=== PATIENT | male | born 1980 | race Caucasian/White ===

== ENCOUNTER → 2021-02-05 11:52 | Outpatient (BNVA) | payer OTHER, SELFPAY | PROVIDERS: Visit Provider Nurse Practitioner Family | DX: Z20.822 Contact with and (suspected) exposure to COVID-19 (principal); J06.9 Acute upper respiratory infection, unspecified | CPT/HCPCS: 87635 ==

== ENCOUNTER 2021-12-02 14:48 | Inpatient (IN) | payer SELFPAY ==
[2021-12-02 14:53] VITALS: BP 147/95; PULSE 95; RESP 16; TEMP 36.5; O2SAT 98; BMI 25.1
--- NOTE | 2021-12-02 15:00 | W.ED.PSYCHS ---
HPI - Psych General: Chief Complaint: Psychiatric Symptoms Stated Complaint: Anxiety; Depression Time Seen by Provider: 12/02/21 15:00 History of Present Illness: 41-year-old presents due to anxiety and depression. States that she recently became and homeless. Denies drug use. Denies suicidal homicidal ideation. Denies any focal pain. Review of Systems Narrative: - CONSTITUTIONAL: Denies weight loss, fever and chills. - HEENT: Denies changes in vision and hearing. - RESPIRATORY: Denies SOB and cough. - CV: Denies palpitations and CP. - GI: Denies abdominal pain, nausea, vomiting and diarrhea. - : Denies dysuria and urinary frequency. - MSK: Denies myalgia and joint pain. - SKIN: Denies rash and pruritus. - NEUROLOGICAL: Denies headache, weakness, numbness and syncope. - PSYCHIATRIC: Endorses anxiety, denies suicidal ideation [facility] ED PFSH: Social History Smoking and tobacco status: never smoked Physical Exam Narrative: EXAM NARRATIVE: - GENERAL: Alert and oriented x 3. No acute distress. Well-nourished. - EYES: EOMI. Anicteric. - HENT: Atraumatic, no C-spine tenderness. Moist mucous membranes. No scleral icterus. No cervical lymphadenopathy. - LUNGS: Clear to auscultation bilaterally. No accessory muscle use. Equal lung sounds bilaterally. No respiratory distress. - CARDIOVASCULAR: Regular rate and rhythm. No murmur. No JVD. - ABDOMEN: Soft, non-tender and non-distended. Negative CVA tenderness bilaterally, no rebound or guarding, negative Johnston sign. No palpable masses. - EXTREMITIES: No edema. Non-tender. - SKIN: No rashes or lesions. Warm. - NEUROLOGIC: No meningismus or focal neurological deficits. CN II-XII grossly intact. - PSYCHIATRIC: Cooperative. Appropriate mood and affect. Course Vital Signs: Vital signs: Vital Signs Temperature 97.7 F 12/02/21 14:53 Pulse Rate 95 12/02/21 14:53 Respiratory Rate 16 12/02/21 14:53 Blood Pressure 147/95 12/02/21 14:53 Pulse Oximetry 98 12/02/21 14:53 [facility] - Psych Medical Decision Making 41-year-old presents with extreme anxiety and inability to care for self. Denies suicidal homicidal ideation. Physical exam unremarkable. Discussed with psychiatry and they will admit. Further evaluation management per psychiatry. Patient admitted in stable condition and is voluntary. Discharge Plan Discharge Condition: Stable Prescriptions: No Action No Known Home Medications 0RF Coding Level of Care Code ED Classer for Isabela Leung
[2021-12-02 15:39] LABS: Add Urine Culture? No; Bacteria Urine TRACE /hpf; Basophils % 0.5 %; Bilirubin Urine Neg (Negative); Blood Urine Neg (Negative); Eosinophils # 0.1 10^3/uL (0.0-0.8); Eosinophils % 1.2 %; Glucose Urine UA Norm (Normal); Hematocrit 41.3 % (42.0-52.0); Hemoglobin 14.3 g/dL (11.7-16.6); Ketones Urine 1+ (Negative); Leukocyte Esterase Urine Negative (Negative); Lymphocytes # 1.3 10^3/uL (0.8-4.8); Lymphocytes % 23.2 %; Mean Corpuscular HGB Conc 34.6 g/dL (30.0-36.0); Mean Corpuscular Hemoglobin 30.1 pg (28.0-34.0); Mean Corpuscular Volume 86.9 fl (80-94); Mean Platelet Volume 9.6 fL (7.4-10.4); Monocytes # 0.6 10^3/uL (0.2-0.9); Monocytes % 9.9 %; Mucus Urine 3+ /hpf; Neutrophils # 3.68 10^3/uL (1.8-7.7); Neutrophils % 64.8 %; Nitrate Urine Negative (Negative); Nucleated Red Blood Cells % 0 %; Platelet Count 213 10^3/cmm (130-400); Protein Urine Neg (Negative); Red Blood Count 4.75 10^6/uL (4.1-5.3); Red Cell Distribution Width 12.6 % (12.1-15.1); Urine Appearance Clear (CLEAR); Urine Color Yellow (Yellow); Urobilinogen Urine Norm (Negative); WBC Urine RARE /hpf (0-5); White Blood Count 5.7 10^3/uL (4.0-10.0); pH Urine 5 (5-7)
[2021-12-02 15:52] LABS: SARS Covid-2 Antigen Negative (Negative)
[2021-12-02 16:06] LABS: Alanine Aminotransferase 44 U/L (0-41); Albumin Level 4.9 g/dL (3.5-5.2); Alkaline Phosphatase 88 IU/L (40-130); Anion Gap 15.2 (5-19); Aspartate Amino Transferase 21 U/L (0-40); Blood Urea Nitrogen 18 mg/dL (6-20); Calcium 9.1 mg/dL (8.5-10.5); Carbon Dioxide 24 mmol/L (22-29); Chloride 105 mmol/L (98-107); Globulin 2.1 g/dL (1.3-4.6); Glomerular Filtration Rate 93.9 mL/min (90-130); Glucose 112 mg/dL (65-115); Osmolality Calculated 293 mOsm/kg (285-295); Potassium 4.2 mmol/L (3.5-5.1); Sodium 140 mmol/L (136-145); Thyroid Stimulating Hormone 0.94 uIU/mL (0.27-4.20); Total Bilirubin 0.4 mg/dL (0.15-1.2)
[2021-12-02 16:11] VITALS: BP 128/78; PULSE 90; RESP 16; TEMP 36.7; O2SAT 96
[2021-12-02 16:26] LABS: Amphetamines Screen Urine Negative (Negative); Barbiturates Screen Urine Negative (Negative); Benzodiazepines Screen Urine Negative (Negative); Cocaine Screen Urine Negative (Negative); Opiate Screen Urine Negative (Negative); PCP Screen Urine Negative (Negative); THC Screen Urine Negative (Negative)
[2021-12-02] MEDS: OLANZapine 5 mg ODT PO (16:26)
[2021-12-02 16:27] LABS: Acetaminophen < 5.0 ug/mL (10-30); Alcohol Level < 10 mg/dL (0-10); Salicylate < 0.3 mg/dL (3-10)
[2021-12-02] MEDS: haloperidol 5 mg Tablet PO (18:09)
[2021-12-02 20:06] VITALS: BP 129/75; PULSE 99; RESP 18; TEMP 36.7; O2SAT 97
[2021-12-03 06:00] VITALS: BP 116/76; PULSE 94; RESP 16; TEMP 36.8; O2SAT 97
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
[2021-12-03 14:00] VITALS: BP 118/72; PULSE 78; RESP 20; TEMP 36.6; O2SAT 97
[2021-12-03] MEDS: hyDROXYzine 25 mg Capsule 50 MG PO ×2 (16:38→20:04)
[2021-12-03 20:28] VITALS: BP 132/84; PULSE 74; RESP 18; TEMP 36.7; O2SAT 98
[2021-12-04 06:00] VITALS: BP 112/73; PULSE 77; RESP 16; TEMP 36.6; O2SAT 97
[2021-12-04] MEDS: fluoxetine 20 mg Capsule PO (08:55)
[2021-12-04 14:00] VITALS: BP 132/84; PULSE 83; RESP 17; TEMP 36.9; O2SAT 97
--- NOTE | 2021-12-04 16:48 | P.NPUPN_ITS ---
Subjective NPU Subjective: Patient presents today reporting that he feels better with initiation of medication. He reports that he is eating and sleeping okay. He reports that he is currently staying at [facility] and trying to get things back on track. He denies any side effects to the medication. He reports working with social work team to make sure he has appropriate referrals. Mental Status Exam MSE Comments: This is an overweight white male in hospital scrubs with adequate grooming and limited eye contact. No abnormal movements except for psychomotor retardation. Cooperative with exam in mild distress. Mood described as a little better, affect is congruent. Thought process, organized. Thought content: patient denies suicidal or homicidal ideation, reports paranoia but no other delusions noted, and denies any auditory or visual hallucinations. Attention and concentration are intact and memory is reliable but none were formally tested. He is alert and oriented three times. Insight and judgment are fair. Impulse control is fair. Vitals/I&O/Wt Last Vital Signs Temp 98.5 F 12/04/21 14:00 Pulse 83 12/04/21 14:00 Resp 17 12/04/21 14:00 BP 132/84 12/04/21 14:00 Pulse Ox 97 12/04/21 14:00 Data NPU : 12/02/21 15:20 12/02/21 15:20 A&P Assessment and plan (1) Alcohol use: Status: Acute (2) Partner relational problem: Status: Acute (3) Major depressive episode: Status: Acute (4) Marital problem involving divorce: Status: Acute Plan This is a 41 year old male with a history of trauma and genetic loading for mental health and addiction issues who presents with worsening anxiety and depression symptoms that have significantly impacted his life, currently going through a divorce and open to starting medications. 1.? Started Prozac 20 mg po qam. 2.? Encourage individual, group and milieu therapy 3.? Continue q-15 minute check for safety 4.? Recommend sober living treatment at the highest level of care to which the patient is willing to commit. Involuntary Hold Information 96 Hour Hold: 96 Hour Involuntary Admission: No Attestations NPU Medical Necessity Statement*: Inpatient hospitalization is medically necessary and the clinically appropriate intervention at this time. We will monitor medications and make changes as indicated. Likely length of stay is 2-4 days. Coding Level of Care Code Acute Steak Tenderizer Machine for Kvgng Fwd Diagnoses Alcohol use Z72.89 Partner relational problem Z63.0 Major depressive episode F32.9 Marital problem involving divorce Z63.5
[2021-12-04] MEDS: hyDROXYzine 25 mg Capsule 50 MG PO (21:09)
[2021-12-04 21:12] VITALS: BP 135/88; PULSE 87; RESP 16; TEMP 36.2; O2SAT 95
[2021-12-05 06:00] VITALS: BP 124/82; PULSE 90; RESP 18; TEMP 36.5; O2SAT 97
[2021-12-05] MEDS: fluoxetine 20 mg Capsule PO (08:08)
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
[2021-12-05 13:26] VITALS: BP 124/82; PULSE 90; RESP 18; TEMP 36.5; O2SAT 97
== END 2021-12-05 15:54 | disposition home or self-care (01) | DRG 881 ==
LOC: ER 15:25 → NP 15:26
PROVIDERS: Admitting Provider Psychiatry & Neurology Psychiatry; Emergency Provider Emergency Medicine; Visit Provider Psychiatry & Neurology Psychiatry
DX: F32.9 Major depressive disorder, single episode, unspecified (principal); F41.9 Anxiety disorder, unspecified; Z59.00 Homelessness unspecified; Z88.0 Allergy status to penicillin; Z81.8 Family history of other mental and behavioral disorders; Z63.0 Problems in relationship with spouse or partner; F10.10 Alcohol abuse, uncomplicated
CPT/HCPCS: 80053; 80306; 80307; 81001; 84443; 85025; 87426; 97150; 97165; 99285

== ENCOUNTER 2022-05-02 15:10 | Emergency (ER) | payer MEDICAID, SELFPAY ==
[2022-05-02 16:13] VITALS: BP 157/105; PULSE 82; RESP 18; TEMP 36.7; O2SAT 97; BMI 26.4
--- NOTE | 2022-05-02 18:06 | CTR_ITS ---
PROCEDURE INFORMATION: Exam: CT Head Without Contrast Exam date and time: 05/02/2022 7:09 PM Age: 42 years old Clinical indication: Alteration of consciousness; Transient alteration of awareness; Additional info: Anxiety and paranoia TECHNIQUE: Imaging protocol: Computed tomography of the head without contrast. Radiation optimization: All CT scans at this facility use at least one of these dose optimization techniques: automated exposure control; mA and/or kV adjustment per patient size (includes targeted exams where dose is matched to clinical indication); or iterative reconstruction. COMPARISON: No relevant prior studies available. RADIATION DOSE METRICS: Total DLP (mGy-cm): 1013.23 FINDINGS: Brain: Normal. No hemorrhage. Unremarkable white matter. No mass effect. Cerebral ventricles: No ventriculomegaly. Paranasal sinuses: Visualized sinuses are unremarkable. No fluid levels. Mastoid air cells: Visualized mastoid air cells are well aerated. Bones/joints: Unremarkable. No acute fracture. Soft tissues: Unremarkable. CT/CT head wo con* [id number] IMPRESSION: No acute intracranial abnormality.
--- NOTE | 2022-05-02 18:35 | ED_ITS ---
HPI - General Adult General: Chief complaint: General Medical Stated complaint: medication issue Time Seen by Provider: 05/02/22 16:54 History of Present Illness: Patient is a 42-year-old male that reports he is in today for anxiety. He reports that he has been having major life changes and issues with anxiety for approximately 2 years. He reports that he is currently on Prozac 40 mg daily and also trazodone. He reports that those are helping somewhat with his depression however his anxiety is crippling to him he is unable to work. He reports that he starts crying a lot and then he has thoughts that are unrealistic. He reports it is like he is in a movie and he is feeling very paranoid. He reports episode lasting greater than 2 hours this morning. He states that he went to [facility] and they advised him to come here because they could not get him in until next Friday. He is asking for help until Friday. He reports that he has never had any evaluation of his head and this is a very new feeling of paranoia for him. He does have family history of mental illness but he is unsure if that is schizophrenia. He denies hearing or seeing things that other people do not however he states that his issue this morning was like he was in a dream and an unrealistic dream. He denies any thoughts of suicide or homicide at this time. He denies any drug abuse. Associated symptoms: Deny chest pain, dyspnea or palpitations Review of Systems Const: Denies: fever(s) or chills Card: Denies: chest pain or palpitations Resp: Denies: dyspnea Psych: Reports: anxiety, depression, panic attacks and paranoia [facility] ED PFSH: Medical History Psychiatric care Social History Smoking and tobacco status: never smoked Physical Exam Const: COMMON NORMALS: no acute distress, patient oriented x3 and alert Resp: COMMON NORMALS: normal respiratory effort, No use of accessory muscles and clear to auscultation bilaterally AUSCULTATION: clear to auscultation bilaterally Cardio: COMMON NORMALS: regular rate, regular rhythm, S1 normal heart sound present, S2 normal heart sound present and No murmurs present (Cardio) RATE: regular rate RHYTHM: regular rhythm HEART SOUNDS: S1 normal heart sound present and S2 normal heart sound present Neuro: COMMON NORMALS: patient oriented x3, CN's II-XII intact bilaterally, moves all extremities and no focal motor deficits SENSORIUM/ORIENTATION: Yes alert Psych: COMMON NORMALS: cooperative, normal affect, speech normal, denies hallucinations, denies homicidal ideation and denies suicidal ideation SPEECH: Yes normal speech OTHER: Patient reports paranoid thinking. He does talk in a whisper most of the exam. Course Vital Signs: Vital signs: Vital Signs Temperature 98.0 F 05/02/22 18:52 Pulse Rate 82 05/02/22 18:52 Respiratory Rate 18 05/02/22 18:52 Blood Pressure 148/98 05/02/22 18:52 Pulse Oximetry 98 05/02/22 18:52 Oxygen Delivery Me thod 05/02/22 18:52 MDM - General Adult Medical Decision Making Patient reports that the paranoia is relatively new. He does have a family history of mental illness but he is unsure if it was schizophrenia or not. He is feeling somewhat schizophrenic per his report because he is having [place] day thinking and paranoia. He denies auditory or visual hallucinations. Head CT done today. Head CT shows no acute intracranial abnormality. Labs are unremarkable except positive for benzodiazepines on UDS. Patient denies any benzodiazepine use. Start patient on BuSpar 5 mg p.o. twice daily 1 week supply provided to get patient through until Friday. Advised patient to keep his follow-up appointment with [facility] on Friday. Return to the ER for any new or worsening symptoms including but not limited to increased paranoia, homicidal ideation, suicidal ideation Lab Data : 05/02/22 18:45 05/02/22 18:[address] 05/02/22 18:06 IMPRESSION: No acute intracranial abnormality. Laboratory Results WBC 6.1 10^3/uL (4.0-10.0) 05/02/22 18:45 RBC 4.93 10^6/uL (4.1-5.3) 05/02/22 18:45 Hgb 14.7 g/dL (11.7-16.6) 05/02/22 18:45 Hct 43.1 % (42.0-52.0) 05/02/22 18:45 MCV 87.4 fl (80-94) 05/02/22 18:45 MCH 29.8 pg (28.0-34.0) 05/02/22 18:45 MCHC 34.1 g/dL (30.0-36.0) 05/02/22 18:45 RDW 13.0 % (12.1-15.1) 05/02/22 18:45 Plt Count 189 10^3/cmm (130-400) 05/02/22 18:45 MPV 9.3 fL (7.4-10.4) 05/02/22 18:45 Neut % (Auto) 55.5 % 05/02/22 18:45 Lymph % (Auto) 30.1 % 05/02/22 18:45 [place] % (Auto) 10.3 % 05/02/22 18:45 Eos % (Auto) 3.1 % 05/02/22 18:45 Baso % (Auto) 0.7 % 05/02/22 18:45 Neut # (Auto) 3.41 10^3/uL (1.8-7.7) 05/02/22 18:45 Lymph # (Auto) 1.9 10^3/uL (0.8-4.8) 05/02/22 18:45 [place] # (Auto) 0.6 10^3/uL (0.2-0.9) 05/02/22 18:45 Eos # (Auto) 0.2 10^3/uL (0.0-0.8) 05/02/22 18:45 Baso # (Auto) 0.0 10^3/uL (0.0-0.1) 05/02/22 18:45 Nucleated RBC % (auto) 0 % 05/02/22 18:45 Nucleated RBCs # 0.0 /100WBC 05/02/22 18:45 Sodium 141 mmol/L (136-145) 05/02/22 18:45 Potassium 4.1 mmol/L (3.5-5.1) 05/02/22 18:45 Chloride 105 mmol/L (98-107) 05/02/22 18:45 Carbon Dioxide 25 mmol/L (22-29) 05/02/22 18:45 Anion Gap 15.1 (5-19) 05/02/22 18:45 BUN 17 mg/dL (6-20) 05/02/22 18:45 Creatinine 0.8 mg/dL (0.7-1.2) 05/02/22 18:45 GFR Calculation 107.1 mL/min (90-130) 05/02/22 18:45 Glucose 93 mg/dL (65-115) 05/02/22 18:45 Calculated Osmolality 293 mOsm/kg (285-295) 05/02/22 18:45 Calcium 9.1 mg/dL (8.5-10.5) 05/02/22 18:45 Total Bilirubin 0.4 mg/dL (0.15-1.2) 05/02/22 18:45 AST 45 U/L (0-40) H 05/02/22 18:45 ALT 52 U/L (0-41) H 05/02/22 18:45 Alkaline Phosphatase 100 U/L (40-130) 05/02/22 18:45 Total Protein 7.3 g/dL (6.6-8.7) 05/02/22 18:45 Albumin 4.4 g/dL (3.5-5.2) 05/02/22 18:45 Globulin 2.9 g/dL (1.3-4.6) 05/02/22 18:45 Urine Opiates Screen Negative ng/mL (Negative) 05/02/22 18:45 Ur Barbiturates Screen Negative ng/mL (Negative) 05/02/22 18:45 Ur Phencyclidine Scrn Negative ng/mL (Negative) 05/02/22 18:45 Ur Amphetamines Screen Negative ng/mL (Negative) 05/02/22 18:45 U Benzodiazepines Scrn Positive ng/mL (Negative) H 05/02/22 18:45 Urine Cocaine Screen Negative ng/mL (Negative) 05/02/22 18:45 U Marijuana (THC) Screen Negative ng/mL (Negative) 05/02/22 18:45 Discharge Plan Discharge Patient Disposition: Home Clinical Impression: Anxiety, Paranoia Condition: Stable Prescriptions: New buspirone 5 mg tablet 5 mg PO BID Qty: 14 0RF No Action trazodone 150 mg tablet 150 mg PO .q hs PRN (Reason: insomnia) Qty: 30 2RF Rx Instructions: Take 1/2 to one tablet at bedtime, if needed for insomnia fluoxetine 40 mg capsule 40 mg PO QAM Qty: 30 2RF Rx Instructions: Take one capsule by mouth every morning; stop 20 mg dose Discharge Orders: Discharge ED (Routine); Ordered 05/02/22 Ordered By: Nano Marin Discharge Diet: Usual diet Discharge Activity: Resume usual activity Patient Instructions: Buspirone (By mouth) Activity Restrictions/Additional Instructions: Start buspirone. Take as directed. Follow-up, as previously scheduled, with [facility] on Friday. Return to the emergency department for any new or worse symptoms including but not limited to worsening paranoia, thoughts of suicide, thoughts of homicide. Coding Level of Care Code ED Production Department Supervisor for Isabela Leung Exam Detailed
[2022-05-02 18:50] LABS: Basophils % 0.7 %; Eosinophils # 0.2 10^3/uL (0.0-0.8); Eosinophils % 3.1 %; Hematocrit 43.1 % (42.0-52.0); Hemoglobin 14.7 g/dL (11.7-16.6); Lymphocytes # 1.9 10^3/uL (0.8-4.8); Lymphocytes % 30.1 %; Mean Corpuscular HGB Conc 34.1 g/dL (30.0-36.0); Mean Corpuscular Hemoglobin 29.8 pg (28.0-34.0); Mean Corpuscular Volume 87.4 fl (80-94); Mean Platelet Volume 9.3 fL (7.4-10.4); Monocytes # 0.6 10^3/uL (0.2-0.9); Monocytes % 10.3 %; Neutrophils # 3.41 10^3/uL (1.8-7.7); Neutrophils % 55.5 %; Nucleated Red Blood Cells % 0 %; Platelet Count 189 10^3/cmm (130-400); Red Blood Count 4.93 10^6/uL (4.1-5.3); White Blood Count 6.1 10^3/uL (4.0-10.0)
[2022-05-02 18:52] VITALS: BP 148/98; PULSE 82; RESP 18; TEMP 36.7; O2SAT 98
[2022-05-02 19:09] LABS: Alanine Aminotransferase 52 U/L (0-41); Albumin Level 4.4 g/dL (3.5-5.2); Alkaline Phosphatase 100 U/L (40-130); Anion Gap 15.1 (5-19); Aspartate Amino Transferase 45 U/L (0-40); Blood Urea Nitrogen 17 mg/dL (6-20); Calcium 9.1 mg/dL (8.5-10.5); Carbon Dioxide 25 mmol/L (22-29); Chloride 105 mmol/L (98-107); Globulin 2.9 g/dL (1.3-4.6); Glomerular Filtration Rate 107.1 mL/min (90-130); Glucose 93 mg/dL (65-115); Osmolality Calculated 293 mOsm/kg (285-295); Potassium 4.1 mmol/L (3.5-5.1); Sodium 141 mmol/L (136-145); Total Bilirubin 0.4 mg/dL (0.15-1.2); Total Protein 7.3 g/dL (6.6-8.7)
[2022-05-02 19:13] LABS: Amphetamines Screen Urine Negative (Negative); Barbiturates Screen Urine Negative (Negative); Benzodiazepines Screen Urine Positive (Negative); Cocaine Screen Urine Negative (Negative); Opiate Screen Urine Negative (Negative); PCP Screen Urine Negative (Negative); THC Screen Urine Negative (Negative)
--- NOTE | 2022-05-02 19:49 | PC.NURSE ---
NURSE ASSESSED PATIENT. PATIENT DOING WELL AT THIS TIME AND HAS NO NEEDS.
[2022-05-02 20:38] VITALS: PULSE 80; RESP 16
== END 2022-05-02 20:40 | disposition home or self-care (01) ==
PROVIDERS: Emergency Provider Nurse Practitioner Family
DX: F41.9 Anxiety disorder, unspecified (principal); F22 Delusional disorders
CPT/HCPCS: 70450; 80053; 80306; 85025; 99284

== ENCOUNTER 2022-05-04 12:20 | Inpatient (IN) | payer MEDICAID, SELFPAY ==
[2022-05-04 12:29] VITALS: BP 142/92; PULSE 90; RESP 16; TEMP 36.5; O2SAT 96; BMI 28.5
--- NOTE | 2022-05-04 12:42 | ED.C_ITS ---
HPI - Psych General: Chief Complaint: Psychiatric Symptoms Stated Complaint: psych evual Time Seen by Provider: 05/04/22 12:42 History of Present Illness: Mr Inman is a 42-year-old gentleman with history of anxiety, depression, paranoia, alcohol abuse presenting to the emergency department for worsening symptoms. He reports things have deteriorated over the past 2 years though worsened lately. He is currently homeless and believes that he is lost everything. He reports feeling of derealization and flashes in his brain of images of him with a gun to his head. Additionally he describes zaps in his brain that he feels like are coming from the devil. Denies auditory visual hallucinations. Overall intensity symptoms moderate to severe. Course is worsened. No other specific changes in health, exacerbating, or alleviating factors identified. History of same: Yes Associated psychiatric symptoms: depression, auditory hallucinations, visual hallucinations and delusions Review of Systems General: Reports: 10 or more systems reviewed and unremarkable except in HPI and below PFSH ED PFSH: Medical History Psychiatric care Social History Smoking and tobacco status: never smoked Physical Exam Const: COMMON NORMALS: alert GENERAL APPEARANCE: cooperative and well developed HENMT: COMMON NORMALS: normocephalic and atraumatic HEAD & SCALP: normocephalic and atraumatic THROAT: posterior oropharynx normal Eye: COMMON NORMALS: conjunctivae normal CONJUNCTIVA: Yes conjunctivae normal SCLERA: sclerae normal Neck/C-Spine: COMMON NORMALS: supple GENERAL: Yes trachea midline Resp: COMMON NORMALS: clear to auscultation bilaterally EFFORT & INSPECTION: Yes able to speak in complete sentences AUSCULTATION: clear to auscultation bilaterally Cardio: COMMON NORMALS: regular rate and regular rhythm RATE: regular rate RHYTHM: regular rhythm GI: COMMON NORMALS: Soft to palpation PALPATION: Yes Soft to palpation and No Tenderness to palpation present (GI) Extremity: GENERAL: Yes normal exam except as noted and No edema Neuro: COMMON NORMALS: moves all extremities SENSORIUM/ORIENTATION: Yes alert and No Orientation impaired Psych: COMMON NORMALS: mental status grossly normal and Normal thought process present THOUGHT PROCESS: Normal thought process present Course Vital Signs: Vital signs: Vital Signs Temperature 98.1 F 05/10/22 14:55 Pulse Rate 92 05/10/22 14:55 Respiratory Rate 16 05/10/22 14:55 Blood Pressure 119/80 05/10/22 14:55 Pulse Oximetry 96 05/10/22 14:55 Oxygen Delivery Me thod 05/10/22 06:00 MDM - Psych Medical Decision Making 42-year-old male presenting with psychiatric symptoms. Patient calm and cooperative on exam, denies medical complaints and no apparent medical abnormality requiring acute intervention. Laboratory studies reviewed without acute derangement requiring intervention, alcohol minimally elevated. No indication for imaging. Based on ED evaluation at this point there is no obvious condition that would preclude the patient from inpatient management of psychiatric concerns. Patient to be admitted to neuropsych unit. Discussed with Dr Santoro who accepted patient. Medical Records I reviewed the patient's medical records. Lab Data I reviewed the patient's lab results. : 05/04/22 13:15 05/04/22 13:15 Laboratory Results WBC 6.0 10^3/uL (4.0-10.0) 05/04/22 13:15 RBC 4.93 10^6/uL (4.1-5.3) 05/04/22 13:15 Hgb 14.6 g/dL (11.7-16.6) 05/04/22 13:15 Hct 43.3 % (42.0-52.0) 05/04/22 13:15 MCV 87.8 fl (80-94) 05/04/22 13:15 MCH 29.6 pg (28.0-34.0) 05/04/22 13:15 MCHC 33.7 g/dL (30.0-36.0) 05/04/22 13:15 RDW 13.0 % (12.1-15.1) 05/04/22 13:15 Plt Count 201 10^3/cmm (130-400) 05/04/22 13:15 MPV 9.8 fL (7.4-10.4) 05/04/22 13:15 Neut % (Auto) 64.3 % 05/04/22 13:15 Lymph % (Auto) 23.3 % 05/04/22 13:15 [place] % (Auto) 8.5 % 05/04/22 13:15 Eos % (Auto) 2.7 % 05/04/22 13:15 Baso % (Auto) 0.7 % 05/04/22 13:15 Neut # (Auto) 3.88 10^3/uL (1.8-7.7) 05/04/22 13:15 Lymph # (Auto) 1.4 10^3/uL (0.8-4.8) 05/04/22 13:15 [place] # (Auto) 0.5 10^3/uL (0.2-0.9) 05/04/22 13:15 Eos # (Auto) 0.2 10^3/uL (0.0-0.8) 05/04/22 13:15 Baso # (Auto) 0.0 10^3/uL (0.0-0.1) 05/04/22 13:15 Nucleated RBC % (auto) 0 % 05/04/22 13:15 Nucleated RBCs # 0.0 /100WBC 05/04/22 13:15 Sodium 141 mmol/L (136-145) 05/04/22 13:15 Potassium 4.0 mmol/L (3.5-5.1) 05/04/22 13:15 Chloride 104 mmol/L (98-107) 05/04/22 13:15 Carbon Dioxide 24 mmol/L (22-29) 05/04/22 13:15 Anion Gap 17.0 (5-19) 05/04/22 13:15 BUN 20 mg/dL (6-20) 05/04/22 13:15 Creatinine 0.8 mg/dL (0.7-1.2) 05/04/22 13:15 GFR Calculation 107.1 mL/min (90-130) 05/04/22 13:15 Glucose 80 mg/dL (65-115) 05/04/22 13:15 Calculated Osmolality 294 mOsm/kg (285-295) 05/04/22 13:15 Calcium 9.3 mg/dL (8.5-10.5) 05/04/22 13:15 Total Bilirubin 0.4 mg/dL (0.15-1.2) 05/04/22 13:15 AST 34 U/L (0-40) 05/04/22 13:15 ALT 46 U/L (0-41) H 05/04/22 13:15 Alkaline Phosphatase 100 U/L (40-130) 05/04/22 13:15 Total Protein 7.1 g/dL (6.6-8.7) 05/04/22 13:15 Albumin 4.5 g/dL (3.5-5.2) 05/04/22 13:15 Globulin 2.6 g/dL (1.3-4.6) 05/04/22 13:15 TSH 0.72 uIU/mL (0.27-4.20) 05/04/22 13:15 Salicylates < 0.3 mg/dL (3-10) L 05/04/22 13:15 Urine Opiates Screen Negative ng/mL (Negative) 05/04/22 13:15 Acetaminophen < 5.0 ug/mL (10-30) L 05/04/22 13:15 Ur Barbiturates Screen Negative ng/mL (Negative) 05/04/22 13:15 Ur Phencyclidine Scrn Negative ng/mL (Negative) 05/04/22 13:15 Ur Amphetamines Screen Negative ng/mL (Negative) 05/04/22 13:15 U Benzodiazepines Scrn Negative ng/mL (Negative) 05/04/22 13:15 Urine Cocaine Screen Negative ng/mL (Negative) 05/04/22 13:15 U Marijuana (THC) Screen Negative ng/mL (Negative) 05/04/22 13:15 Ethyl Alcohol 17 mg/dL (0-10) H 05/04/22 13:15 Discharge Plan Discharge Patient Disposition: Admitted As Inpatient Admit Provider: Ronnie Bentley Clinical Impression: Suicidal ideation, Depression, Derealization Condition: Stable Discharge Diet: Regular Discharge Activity: Resume usual activity Coding Level of Care Code ED Funeral Counselor for Isabela Leung
[2022-05-04 13:36] LABS: Amphetamines Screen Urine Negative (Negative); Barbiturates Screen Urine Negative (Negative); Benzodiazepines Screen Urine Negative (Negative); Cocaine Screen Urine Negative (Negative); Opiate Screen Urine Negative (Negative); PCP Screen Urine Negative (Negative); THC Screen Urine Negative (Negative)
[2022-05-04 14:16] LABS: Basophils % 0.7 %; Eosinophils # 0.2 10^3/uL (0.0-0.8); Eosinophils % 2.7 %; Hematocrit 43.3 % (42.0-52.0); Hemoglobin 14.6 g/dL (11.7-16.6); Lymphocytes # 1.4 10^3/uL (0.8-4.8); Lymphocytes % 23.3 %; Mean Corpuscular HGB Conc 33.7 g/dL (30.0-36.0); Mean Corpuscular Hemoglobin 29.6 pg (28.0-34.0); Mean Corpuscular Volume 87.8 fl (80-94); Mean Platelet Volume 9.8 fL (7.4-10.4); Monocytes # 0.5 10^3/uL (0.2-0.9); Monocytes % 8.5 %; Neutrophils # 3.88 10^3/uL (1.8-7.7); Neutrophils % 64.3 %; Nucleated Red Blood Cells % 0 %; Platelet Count 201 10^3/cmm (130-400); Red Blood Count 4.93 10^6/uL (4.1-5.3)
[2022-05-04 14:40] LABS: Alanine Aminotransferase 46 U/L (0-41); Albumin Level 4.5 g/dL (3.5-5.2); Alcohol Level 17 mg/dL (0-10); Alkaline Phosphatase 100 U/L (40-130); Aspartate Amino Transferase 34 U/L (0-40); Blood Urea Nitrogen 20 mg/dL (6-20); Calcium 9.3 mg/dL (8.5-10.5); Carbon Dioxide 24 mmol/L (22-29); Chloride 104 mmol/L (98-107); Globulin 2.6 g/dL (1.3-4.6); Glomerular Filtration Rate 107.1 mL/min (90-130); Glucose 80 mg/dL (65-115); Osmolality Calculated 294 mOsm/kg (285-295); Sodium 141 mmol/L (136-145); Thyroid Stimulating Hormone 0.72 uIU/mL (0.27-4.20); Total Bilirubin 0.4 mg/dL (0.15-1.2); Total Protein 7.1 g/dL (6.6-8.7)
[2022-05-04 14:42] LABS: Acetaminophen < 5.0 ug/mL (10-30); Salicylate < 0.3 mg/dL (3-10)
--- NOTE | 2022-05-04 14:53 | PC.NURSE ---
Report called to ANGY Ratliff.
[2022-05-04 15:10] VITALS: BP 117/92; PULSE 86; RESP 18; O2SAT 98
--- NOTE | 2022-05-04 15:31 | PC.NURSE ---
Received report from ANGY Whatley. She states that the patient complains of not feeling right and that he sometimes feels like maybe he's a superhero. She also says patient denies SI/HI and that he takes trazadone and prozac.
[2022-05-04 16:16] VITALS: BP 138/88; PULSE 80; RESP 16; TEMP 36.8; O2SAT 98
--- NOTE | 2022-05-04 16:47 | PC.NURSE ---
Patient states he came to the hospital because he wasn't feeling normal. When asked to elaborate the patient said, my thoughts are just blending, like I think of old fiction books and stuff. However, patient did deny any SI/HI and AH/VH. He stated he was having panic attacks at work and can't hold a job down because of it. He states his anxiety will go from 0 to 100 quickly and that he feels like his memory is getting worse. He says he has an ex- who he doesn't get along with and that he also has 2 daughters with her that are 4 and 8. He hasn't talked to them in over a week due to not having a phone because he doesn't have money. Patient states he has been sleeping outside in [place] and under a bridge. Patient laughed nervously throughout the assessment and at inappropriate times.
[2022-05-04 20:09] VITALS: BP 140/92; PULSE 83; RESP 16; TEMP 36.7; O2SAT 95
[2022-05-05 06:00] VITALS: BP 126/85; PULSE 81; RESP 16; TEMP 36.6; O2SAT 97
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
[2022-05-05] MEDS: fluoxetine 20 mg Capsule 40 MG PO (09:40)
[2022-05-05] MEDS: BuSPIRONE 10 mg Tablet 5 MG PO ×2 (09:40→18:30)
[2022-05-05 14:00] VITALS: BP 125/88; PULSE 95; RESP 15; TEMP 36.8; O2SAT 95
[2022-05-05] MEDS: OLANZapine 5 mg ODT PO (16:28)
[2022-05-05 21:58] VITALS: BP 122/78; PULSE 75; RESP 18; TEMP 36.6; O2SAT 99
[2022-05-06 06:00] VITALS: BP 127/85; PULSE 81; RESP 18; TEMP 36.5; O2SAT 98
[2022-05-06] MEDS: escitalopram 10 mg Tablet PO (08:23)
[2022-05-06] MEDS: BuSPIRONE 10 mg Tablet 5 MG PO (08:23)
--- NOTE | 2022-05-06 11:55 | PC.NURSE ---
PATIENT DENIES AVH AND SI/HI. PATIENT STATES HE IS ALWAYS FEELING ANXIOUS AND RATES IT A 6/10 AND DEPRESSION AT A 4/10. HE SAYS HE REALLY FEELS MOST ANXIOUS ABOUT NOT BEING ABLE TO HOLD A JOB AND THAT HE KNOWS HE'S SMART BUT THAT HE CAN'T HELP HIMSELF.
[2022-05-06 14:00] VITALS: BP 125/87; PULSE 83; RESP 15; TEMP 36.9; O2SAT 97
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
[2022-05-06] MEDS: ARIPiprazole 2 mg Tablet PO (18:02)
[2022-05-06 20:27] VITALS: BP 139/89; PULSE 91; RESP 16; TEMP 36.7; O2SAT 94
[2022-05-06] MEDS: hyDROXYzine 25 mg Capsule 50 MG PO (22:12)
[2022-05-06] MEDS: trazodone 50 mg Tablet PO (22:12)
[2022-05-07 06:00] VITALS: BP 115/75; PULSE 78; RESP 16; TEMP 36.5; O2SAT 98
[2022-05-07] MEDS: escitalopram 10 mg Tablet PO (08:37)
[2022-05-07] MEDS: ARIPiprazole 2 mg Tablet PO (08:37)
[2022-05-07 14:00] VITALS: BP 136/86; PULSE 113; RESP 17; TEMP 36.8; O2SAT 96
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
[2022-05-07] MEDS: OLANZapine 5 mg ODT PO (17:59)
[2022-05-07 20:08] VITALS: BP 153/94; PULSE 104; RESP 18; TEMP 36.6; O2SAT 96
[2022-05-08 06:00] VITALS: BP 176/104; PULSE 91; RESP 16; TEMP 36.6; O2SAT 97
[2022-05-08] MEDS: ARIPiprazole 2 mg Tablet PO (08:44)
[2022-05-08] MEDS: escitalopram 10 mg Tablet PO (08:44)
[2022-05-08] MEDS: acetaminophen 325 mg Tablet 650 MG PO (13:36)
[2022-05-08 14:00] VITALS: BP 139/93; PULSE 85; RESP 18; TEMP 36.7; O2SAT 95
--- NOTE | 2022-05-08 16:29 | W.PM.NPUPNS ---
Subjective NPU Subjective: Is a 42-year-old white male with a history of ADHD inattentive type, generalized anxiety disorder,and major depressive disorder, with r/o of psychosis admitted with depressed mood so and suicidal ideation. Patient had reported some continued paranoia. He reported feeling tired. He continued to report at times being preoccupied by his thoughts. He denied having any thoughts of hurting himself currently but reported that he continued to feel depressed. He reported no feelings of hopelessness. He had continue to acknowledge having a decline in his mood over the past few months. He had reported low energy and a a general lack of pleasure in doing anything. He had reported significant difficulties with execution of tasks. He reports a history of distrust with medications but reported that he needed to take something to help him from declining further. Mental Status Exam MSE Comments: This is an overweight white male in hospital scrubs with poor grooming and limited eye contact who was cooperative on interview. His speech was monotone in quality with increased latency noted. No abnormal involuntary motor movements appreciated. He was alert and oriented to person place and time. Mood described as depressed, affect is flat and somewhat odd. Thought process was linear logical and goal directed. Thought content: patient denies homicidal ideation, and minimized suicidal ideation. There was continued vague paranoid ideation during the interview. He did at times appear to be responding to internal stimuli. Attention and concentration are intact. His memory was reliable but none were formally tested. Insight and judgment are poor. Impulse control is poor. Vitals/I&O/Wt Last Vital Signs Temp 97.9 F 05/08/22 06:00 Pulse 91 05/08/22 06:00 Resp 16 05/08/22 06:00 BP 176/104 05/08/22 06:00 Pulse Ox 97 05/08/22 06:00 O2 Del Method 05/04/22 16:14 Data NPU : 05/04/22 13:15 05/04/22 13:15 A&P Assessment and plan (1) Paranoia: (2) Anxiety: (3) Generalized anxiety disorder: (4) Major depressive disorder, recurrent: (5) Alcohol use: Plan This is a 42 year old male with a history of trauma and genetic loading for mental health and addiction issues who presents with worsening anxiety and depression symptoms that have significantly impacted his life, particular family related issues and recent divorce. 1.? Continue lexapro 10mg in am, increase abilify 5mg daily. -patient appears psychotic. 2.? Encourage individual, group and milieu therapy, CIWA for alcohol withdrawal 3.? Continue q-15 minute check for safety 4.? Recommend sober living treatment at the highest level of care to which the patient is willing to commit. Involuntary Hold Information 96 Hour Hold: 96 Hour Involuntary Admission: No Attestations NPU Medical Necessity Statement*: Inpatient hospitalization is medically necessary and the clinically appropriate intervention at this time with likely length of stay on the NPU of 3-7 days. 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
[2022-05-08 20:13] VITALS: BP 140/87; PULSE 74; RESP 18; TEMP 36.9; O2SAT 94
[2022-05-08] MEDS: trazodone 50 mg Tablet PO (21:21)
[2022-05-09] MEDS: trazodone 50 mg Tablet PO (00:27)
[2022-05-09 06:00] VITALS: BP 126/89; PULSE 89; RESP 17; TEMP 36.7; O2SAT 95
[2022-05-09] MEDS: ARIPiprazole 10 mg Tablet 5 MG PO ×2 (08:41→20:43)
[2022-05-09] MEDS: escitalopram 10 mg Tablet PO (08:41)
[2022-05-09 15:13] VITALS: BP 125/82; PULSE 88; RESP 20; TEMP 36.8; O2SAT 98
--- NOTE | 2022-05-09 17:39 | P.NPUPN_ITS ---
Subjective NPU Subjective: Patient presents today reporting that he has been doing okay with the medication only he continues to feel tired and is unsure how much Abilify is helping. We discussed the risks, benefits and alternatives to increasing his Abilify to 10 mg and switching it and the Lexapro to p.o. nightly dosing and he understood and agreed to proceed as is documented in this note. We discussed working with the treatment team to look at resources for discharge. He did file openness to going to a larger city that might have better resources for people like him. We discussed [place] and [place] both of which are known to him. Mental Status Exam MSE Comments: This is an overweight white male in hospital scrubs with adequate grooming and an improving limited eye contact. No abnormal movements. Cooperative with exam in no acute distress. Speech was slightly decreased rate and volume. Mood described as a little better, affect slightly odd and subdued. Thought process organized. Thought content: Patient denies suicidal or homicidal ideation, there was some paranoia reported but none noted, he denied auditory or visual hallucinations. Attention and concentration are intact. His memory was reliable but none were formally tested. He is alert and oriented x3. Insight and judgment are limited. Impulse control is improving. Vitals/I&O/Wt Last Vital Signs Temp 98.3 F 05/09/22 15:13 Pulse 88 05/09/22 15:13 Resp 20 H 05/09/22 15:13 BP 125/82 05/09/22 15:13 Pulse Ox 98 05/09/22 15:13 O2 Del Method 05/09/22 15:13 Data NPU : 05/04/22 13:15 05/04/22 13:15 A&P Assessment and plan (1) Paranoia: (2) Anxiety: (3) Generalized anxiety disorder: (4) Major depressive disorder, recurrent: (5) Alcohol use: Plan This is a 42 year old male with a history of trauma and genetic loading for mental health and addiction issues who presents with worsening anxiety and depression symptoms that have significantly impacted his life, particular family related issues and recent divorce. 1.? Continue lexapro 10mg, will switch to the p.m. increase Abilify to 10 mg p.o. nightly. 2.? Encourage individual, group and milieu therapy, CIWA for alcohol withdrawal 3.? Continue q-15 minute check for safety 4.? Recommend sober living treatment at the highest level of care to which the patient is willing to commit. Involuntary Hold Information 96 Hour Hold: 96 Hour Involuntary Admission: No Attestations NPU Medical Necessity Statement*: Inpatient hospitalization is medically necessary and the clinically appropriate intervention at this time. We will monitor medications and make changes as indicated. Likely length of stay 2-6 days. 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
[2022-05-09 20:11] VITALS: BP 137/99; PULSE 78; RESP 18; TEMP 36.5; O2SAT 93
[2022-05-10 06:00] VITALS: BP 119/80; PULSE 92; RESP 16; TEMP 36.7; O2SAT 96
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
[2022-05-10 14:55] VITALS: BP 119/80; PULSE 92; RESP 16; TEMP 36.7; O2SAT 96
== END 2022-05-10 15:24 | disposition home or self-care (01) | DRG 885 ==
LOC: ER 14:25 → NP 14:51
PROVIDERS: Admitting Provider Psychiatry & Neurology Psychiatry; Emergency Provider Emergency Medicine; Visit Provider Psychiatry & Neurology Psychiatry
DX: F33.9 Major depressive disorder, recurrent, unspecified (principal); R45.851 Suicidal ideations; F41.1 Generalized anxiety disorder; F10.90 Alcohol use, unspecified, uncomplicated; Y90.0 Blood alcohol level of less than 20 mg/100 ml; F90.0 Attention-deficit hyperactivity disorder, predominantly inattentive type; F22 Delusional disorders; Z63.5 Disruption of family by separation and divorce; Z59.00 Homelessness unspecified; Z63.9 Problem related to primary support group, unspecified; Z81.8 Family history of other mental and behavioral disorders; Z81.4 Family history of other substance abuse and dependence
CPT/HCPCS: 80053; 80306; 80307; 84443; 85025; 97165; 99285

== ENCOUNTER 2022-12-10 15:37 | Inpatient (IN) | payer BC, SELFPAY ==
[2022-12-10 15:39] VITALS: BP 133/85; PULSE 104; TEMP 36.8; O2SAT 97; BMI 32.1
--- NOTE | 2022-12-10 15:43 | W.ED.PSYCHS ---
HPI - Psych General: Chief Complaint: Psychiatric Symptoms Stated Complaint: 96 HR HOLD Time Seen by Provider: 12/10/22 15:42 Source: patient Mode of arrival: ambulatory Limitations: no limitations History of Present Illness: Patient is a 42-year-old male who presents to ED today after being seen at the crisis center and referred here for evaluation/treatment. Patient is on a 96-hour hold. According to hold paperwork he has had erratic behavior and claims that he sees the [facility] . Hold paperwork also states that patient has committed suicide. On my exam patient tells me that he does suffer from severe paranoia that prevents him from having meaningful relationships and jobs. He has been fired from multiple jobs secondary to this. States that the FBI have bugged his phone. Patient states he has no history of paranoid schizophrenia. He states he has been admitted to [facility] over the past year for treatment of depression. He states his only medication currently is Lexapro. Patient tells me he does not currently feel suicidal or homicidal. He denies drug or alcohol use. MD complaint: other (paranoia) Duration: constant History of same: Yes Relieving factors: none Exacerbating factors: none Associated psychiatric symptoms: other (paranoia) Associated symptoms: Reports depression and other (anxiety); Deny auditory hallucinations, visual hallucinations, homicidal ideation or suicidal ideation Treatments prior to arrival: placed on mental health hold Review of Systems Const: Denies: fever(s) or chills Card: Denies: chest pain, palpitations, lightheadedness or syncope Resp: Denies: dyspnea GI: Denies: abdominal pain, nausea, vomiting or diarrhea Skin/Breast: Denies: rash Neuro: Denies: headache(s) Psych: Reports: anxiety, depression and paranoia; Denies: visual hallucinations, auditory hallucinations, suicidal ideation or homicidal ideation COUNT INCLUDES THE [facility] ED PFSH: Medical History Alcohol use Major depressive episode Psychiatric care Social History Smoking and tobacco status: never smoked Physical Exam Const: COMMON NORMALS: no acute distress, average body habitus, patient oriented x3, no limitations, healthy appearing, alert and well nourished GENERAL APPEARANCE: cooperative and well kempt Resp: COMMON NORMALS: normal respiratory effort and clear to auscultation bilaterally AUSCULTATION: clear to auscultation bilaterally Cardio: COMMON NORMALS: regular rate and regular rhythm RATE: regular rate RHYTHM: regular rhythm Neuro: COMMON NORMALS: patient oriented x3 SENSORIUM/ORIENTATION: Yes alert Psych: COMMON NORMALS: mental status grossly normal, Normal thought process present, cooperative, normal affect, speech normal, activity/motor behavior normal, denies hallucinations, denies homicidal ideation and denies suicidal ideation APPEARANCE: Yes grossly normal and Yes well kempt ATTITUDE: Yes calm ACTIVITY/MOTOR BEHAVIOR: Yes appropriate eye contact and No psychomotor agitation SPEECH: Yes normal speech MOOD & AFFECT: Yes euthymic mood THOUGHT PROCESS: Normal thought process present ATTENTION/CONCENTRATION: Yes attention grossly intact and Yes concentration grossly intact MEMORY/COGNITION: Yes memory grossly intact and Yes cognition grossly intact INSIGHT: Good insight present (Psych) JUDGEMENT: Good judgement present (Psych) Course Consultations: Consultation #1: Dr. Bentley-accepts to [facility] Vital Signs: Vital signs: Vital Signs Temperature 98.2 F 12/10/22 15:39 Pulse Rate 104 H 12/10/22 15:39 Blood Pressure 133/85 12/10/22 15:39 Pulse Oximetry 97 12/10/22 15:39 Oxygen Delivery Me thod Room Air 12/10/22 15:39 MDM - Psych Medical Decision Making Patient will be an admit to NPU to Dr. Bentley for treatment of paranoia. He is on a 96-hour hold at this time. Dr. Savage will write admit orders. Lab Data 12/10/22 16:14 12/10/22 16:14 Laboratory Results WBC 5.4 10^3/uL (4.0-10.0) 12/10/22 16:14 RBC 4.79 10^6/uL (4.1-5.3) 12/10/22 16:14 Hgb 13.8 g/dL (11.7-16.6) 12/10/22 16:14 Hct 40.9 % (42.0-52.0) L 12/10/22 16:14 MCV 85.4 fl (80-94) 12/10/22 16:14 MCH 28.8 pg (28.0-34.0) 12/10/22 16:14 MCHC 33.7 g/dL (30.0-36.0) 12/10/22 16:14 RDW 13.7 % (12.1-15.1) 12/10/22 16:14 Plt Count 215 10^3/cmm (130-400) 12/10/22 16:14 MPV 8.9 fL (7.4-10.4) 12/10/22 16:14 Neut % (Auto) 59.1 % 12/10/22 16:14 Lymph % (Auto) 27.1 % 12/10/22 16:14 [place] % (Auto) 9.0 % 12/10/22 16:14 Eos % (Auto) 3.7 % 12/10/22 16:14 Baso % (Auto) 0.7 % 12/10/22 16:14 Neut # (Auto) 3.20 10^3/uL (1.8-7.7) 12/10/22 16:14 Lymph # (Auto) 1.5 10^3/uL (0.8-4.8) 12/10/22 16:14 [place] # (Auto) 0.5 10^3/uL (0.2-0.9) 12/10/22 16:14 Eos # (Auto) 0.2 10^3/uL (0.0-0.8) 12/10/22 16:14 Baso # (Auto) 0.0 10^3/uL (0.0-0.1) 12/10/22 16:14 Nucleated RBC % (auto) 0 % 12/10/22 16:14 Nucleated RBCs # 0.0 /100WBC 12/10/22 16:14 Discharge Plan Discharge Patient Disposition: Admitted As Inpatient Clinical Impression: Involuntary commitment, Paranoia (psychosis) Condition: Stable Prescriptions: No Action diclofenac sodium [Arthritis Pain (diclofenac)] 1 % gel 4 g topical QID Qty: 100 0RF Rx Instructions: apply to left great toe escitalopram oxalate 20 mg tablet 20 mg PO QPM Rx Instructions: Take one tablet by mouth every evening Patient Instructions: Opioid Safety, Pain Management Coding Level of Care Code ED Lead Fire Protection Engineer for Isabela Leung
[2022-12-10 16:23] LABS: Basophils % 0.7 %; Eosinophils # 0.2 10^3/uL (0.0-0.8); Eosinophils % 3.7 %; Hematocrit 40.9 % (42.0-52.0); Hemoglobin 13.8 g/dL (11.7-16.6); Lymphocytes # 1.5 10^3/uL (0.8-4.8); Lymphocytes % 27.1 %; Mean Corpuscular HGB Conc 33.7 g/dL (30.0-36.0); Mean Corpuscular Hemoglobin 28.8 pg (28.0-34.0); Mean Corpuscular Volume 85.4 fl (80-94); Mean Platelet Volume 8.9 fL (7.4-10.4); Monocytes # 0.5 10^3/uL (0.2-0.9); Neutrophils % 59.1 %; Nucleated Red Blood Cells % 0 %; Platelet Count 215 10^3/cmm (130-400); Red Blood Count 4.79 10^6/uL (4.1-5.3); Red Cell Distribution Width 13.7 % (12.1-15.1); White Blood Count 5.4 10^3/uL (4.0-10.0)
[2022-12-10 16:47] LABS: Acetaminophen < 5.0 ug/mL (10-30); Alanine Aminotransferase 25 U/L (0-41); Albumin Level 4.5 g/dL (3.5-5.2); Alcohol Level < 10 mg/dL (0-10); Alkaline Phosphatase 86 U/L (40-130); Anion Gap 16.8 (5-19); Aspartate Amino Transferase 22 U/L (0-40); Blood Urea Nitrogen 12 mg/dL (6-20); Calcium 9.1 mg/dL (8.5-10.5); Carbon Dioxide 24 mmol/L (22-29); Chloride 103 mmol/L (98-107); Globulin 2.4 g/dL (1.3-4.6); Glomerular Filtration Rate 93.5 mL/min (90-130); Glucose 111 mg/dL (65-115); Osmolality Calculated 290 mOsm/kg (285-295); Potassium 3.8 mmol/L (3.5-5.1); Salicylate < 0.3 mg/dL (3-10); Sodium 140 mmol/L (136-145); Total Bilirubin 0.4 mg/dL (0.15-1.2); Total Protein 6.9 g/dL (6.6-8.7)
[2022-12-10 18:04] LABS: Amphetamines Screen Urine Negative (Negative); Barbiturates Screen Urine Negative (Negative); Benzodiazepines Screen Urine Negative (Negative); Cocaine Screen Urine Negative (Negative); Opiate Screen Urine Negative (Negative); PCP Screen Urine Negative (Negative); THC Screen Urine Negative (Negative)
[2022-12-10 18:12] VITALS: BP 126/87; PULSE 77; RESP 18; TEMP 36.6; O2SAT 98
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
[2022-12-10 20:23] VITALS: BP 125/75; PULSE 84; RESP 18; TEMP 36.7; O2SAT 99
[2022-12-10] MEDS: trazodone 50 mg Tablet PO (20:34)
[2022-12-10] MEDS: hyDROXYzine 25 mg Capsule 50 MG PO (20:34)
[2022-12-11 06:00] VITALS: BP 116/65; PULSE 84; RESP 16; TEMP 36.7; O2SAT 97
[2022-12-11 14:00] VITALS: BP 135/83; PULSE 84; RESP 16; TEMP 36.7; O2SAT 96
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
[2022-12-11] MEDS: paliperidone ER 3 mg Tablet PO (15:07)
[2022-12-11] MEDS: diclofenac 1% Topical Gel 100 gm 4 APPLIC TOPICAL ×3 (15:07→18:01)
[2022-12-11] MEDS: escitalopram 10 mg Tablet 20 MG PO (18:00)
[2022-12-11] MEDS: trazodone 50 mg Tablet PO (20:37)
[2022-12-11 21:12] VITALS: BP 132/94; PULSE 97; RESP 18; TEMP 36.6; O2SAT 94
[2022-12-12 06:00] VITALS: RESP 17
[2022-12-12] MEDS: diclofenac 1% Topical Gel 100 gm 4 APPLIC TOPICAL ×2 (09:10→15:36)
[2022-12-12] MEDS: paliperidone ER 3 mg Tablet PO (09:10)
[2022-12-12] MEDS: OLANZapine 5 mg ODT PO (10:20)
--- NOTE | 2022-12-12 13:14 | P.NPUPN_ITS ---
Subjective NPU Subjective: the patient is a 42-year-old male with a history of psychotic disorder and otherwise specified along with depression and generalized anxiety disorder admitted with increased paranoia and ideas of reference with thought insertion. Patient had reported no side effects from the initiation of Invega. He had continue to report feeling paranoid and suspicious. He had continued to isolate himself on the milieu. He stated that he had not been feeling depressed but had been feeling anxious and distrustful of others. Mental Status Exam MSE Comments: This is an overweight white male in hospital scrubs who appeared his stated age with fair hygiene and normal gait. There was no evidence of any abnormal involuntary motor movements tics or tremors appreciated. He was alert and oriented to person place and time. He was cooperative with exam in no acute distress. Speech was normal in regards to rate rhythm and prosody. His mood was described as all right. His affect slightly odd and subdued. Thought process was linear and organized. Thought content: Patient denies suicidal or homicidal ideation. There was clear evidence of bizarre delusions, ideas of reference, and thought broadcasting. He did not appear to be responding to internal stimuli. Attention and concentration are intact. His recent and remote memory appeared grossly intact.. Insight was poor and judgment was po or. Impulse control is impaired. Vitals/I&O/Wt Last Vital Signs Temp 98.7 F 12/12/22 22:00 Pulse 88 12/12/22 22:00 Resp 16 12/12/22 22:00 BP 128/85 12/12/22 22:00 Pulse Ox 96 12/12/22 22:00 O2 Del Method Room Air 12/12/22 22:00 Data NPU 12/10/22 16:14 12/10/22 16:14 A&P Assessment and plan (1) Paranoia (psychosis): (2) Psychotic disorder: (3) Generalized anxiety disorder: (4) Major depressive disorder, recurrent: Qualifiers: Active/Remission status: currently active Major depression episode severity: moderate Qualified Code(s): F33.1 - Major depressive disorder, recurrent, moderate Plan 42-year-old white male with a long history of depression and generalized anxiety disorder who appears to be struggling with psychosis that may have been present and lingering for several years. He had reported a previous benefit from a low- dose of an antipsychotic and was agreeable to the use of an antipsychotic to target his psychosis. 1.? ? Engage? patient in individual ,milieu, and group therapy ?2. ? Continue Invega 3mg daily, continue Lexapro 20mg as prescribed. ?3. ? TO-15 minute checks on the unit. ?4.? Recommend sober living treatment at the highest level of care to which the patient is willing to commit. Involuntary Hold Information 96 Hour Hold: 96 Hour Involuntary Admission: Yes 96 Hour Hold Ending Date: 12/16/22 96 Hour Hold Ending Time: 15:39 Attestations NPU Medical Necessity Statement*: Inpatient hospitalization is medically necessary and deemed to be the clinically appropriate intervention at this time. We will monitor initiate medications while making changes as indicated. His likely length of stay is 5 to 7 days. Coding Level of Care Code Acute Code for g Fwd Diagnoses Paranoia (psychosis) F22 Psychotic disorder F29 Generalized anxiety disorder F41.1 Major depressive disorder, recurrent F33.1 Active/Remission status: currently active Major depression episode severity: moderate
[2022-12-12 14:00] VITALS: BP 118/73; PULSE 76; RESP 16; TEMP 36.6; O2SAT 97
[2022-12-12] MEDS: escitalopram 10 mg Tablet 20 MG PO (17:35)
[2022-12-12 22:00] VITALS: BP 128/85; PULSE 88; RESP 16; TEMP 37.1; O2SAT 96
[2022-12-13] MEDS: paliperidone ER 3 mg Tablet PO (08:17)
--- NOTE | 2022-12-13 08:28 | PC.NURSE ---
Patient states he doesn't need his diclofenac gel this morning and will let us know if it is needed.
--- NOTE | 2022-12-13 13:31 | W.PM.NPUPNS ---
Subjective NPU Subjective: This is a 42-year-old white male with psychotic disorder and otherwise specified admitted with increased bizarre behavior and bizarre delusions regarding the MARCELA invading his privacy. He had continue to report feeling suspicious here in the unit. He stated that he had been sleeping better. He had continued to isolate himself on the milieu and required some prompting for attending groups. He had reported not feeling anxious or fidgety as had been reported previously on [facility]. He reported no feelings of hopelessness or worthlessness and stated that his mood was good. He continued to report problems with feeling uncomfortable in large crowds. He had continued to report feeling as if others could read his mind and stated that he still had questions whether the government was trying to spy on him. He reports ruminating less regarding the matter that had brought him into the hospital as he stated he was feeling somewhat safer here and not concerned about cameras. Mental Status Exam MSE Comments: He is casually dressed white male who appeared his stated age. He had intermittent eye contact. There was normal gait and there was no evidence of any abnormal involuntary motor movements tics or tremors appreciated. His speech was monotone and quality with normal rate with normal volume. There was some measure of mild psychomotor slowing. His mood was described as okay. His affect remained somewhat blunted. His thought process was linear logical and superficial. His thought content showed no evidence of active homicidal or suicidal ideation. There was continued evidence of delusions and ideas of reference with clear paranoid ideation. He did not appear to be responding to internal stimuli. His recent and remote memory appeared grossly intact. His insight was poor. His judgment is poor. His impulse control appeared to be improving. Vitals/I&O/Wt Last Vital Signs Temp 98.7 F 12/12/22 22:00 Pulse 88 12/12/22 22:00 Resp 16 12/12/22 22:00 BP 128/85 12/12/22 22:00 Pulse Ox 96 12/12/22 22:00 O2 Del Method Room Air 12/12/22 22:00 Data NPU 12/10/22 16:14 12/10/22 16:14 A&P Assessment and plan (1) Psychotic disorder: (2) Paranoia (psychosis): (3) Generalized anxiety disorder: (4) Major depressive disorder, recurrent: Qualifiers: Active/Remission status: currently active Major depression episode severity: moderate Qualified Code(s): F33.1 - Major depressive disorder, recurrent, moderate Plan 42-year-old white male with a long history of depression and generalized anxiety disorder who appears to be struggling with psychosis that may have been present and lingering for several years. He had reported a previous benefit from a low-dose of an antipsychotic and was agreeable to the use of an antipsychotic to target his psychosis. 1.? ? Engage? patient in individual ,milieu, and group therapy ?2. ? Continue Invega 3mg daily with increase to 6mg at night tommorow, continue Lexapro 20mg as prescribed. ?3. ? TO-15 minute checks on the unit. ?4.? Recommend sober living treatment at the highest level of care to which the patient is willing to commit. Involuntary Hold Information 96 Hour Hold: 96 Hour Involuntary Admission: Yes 96 Hour Hold Ending Date: 12/16/22 96 Hour Hold Ending Time: 15:39 Attestations NPU Medical Necessity Statement*: Inpatient hospitalization is medically necessary and deemed to be the clinically appropriate intervention at this time. We will monitor initiate medications while making changes as indicated. His likely length of stay is 5 to 7 days. Coding Level of Care Code Acute Code for [facility] Diagnoses Psychotic disorder F29 Paranoia (psychosis) F22 Generalized anxiety disorder F41.1 Major depressive disorder, recurrent F33.1 Active/Remission status: currently active Major depression episode severity: moderate
[2022-12-13 14:00] VITALS: BP 128/81; PULSE 86; RESP 20; TEMP 36.7; O2SAT 98
[2022-12-13] MEDS: diclofenac 1% Topical Gel 100 gm 4 APPLIC TOPICAL ×2 (14:08→17:58)
[2022-12-13] MEDS: escitalopram 10 mg Tablet 20 MG PO (17:23)
[2022-12-13] MEDS: acetaminophen 325 mg Tablet 650 MG PO ×2 (17:57→21:13)
[2022-12-13 21:07] VITALS: BP 122/88; PULSE 93; RESP 15; TEMP 37.1; O2SAT 94
[2022-12-13] MEDS: ibuprofen 600 mg Tablet PO (21:48)
[2022-12-14] MEDS: trazodone 50 mg Tablet PO ×2 (01:20→22:13)
[2022-12-14 06:00] VITALS: BP 127/87; PULSE 83; RESP 15; TEMP 36.7; O2SAT 97
[2022-12-14] MEDS: paliperidone ER 3 mg Tablet PO ×2 (08:35→17:34)
[2022-12-14] MEDS: diclofenac 1% Topical Gel 100 gm 4 APPLIC TOPICAL ×2 (08:58→19:18)
[2022-12-14] MEDS: ibuprofen 600 mg Tablet PO ×2 (09:06→19:25)
--- NOTE | 2022-12-14 11:33 | P.NPUPN_ITS ---
Subjective NPU Subjective: This is a 42-year-old white male with psychotic disorder and otherwise specified admitted with increased bizarre behavior and bizarre delusions regarding the [facility] invading his privacy. The patient had reported feeling less suspicious but still stated that he felt as if he were having his thoughts on public display with continued concerns about thought broadcasting. He reported he had isolated himself here to avoid being around other people. Staff notes the patient had minimal contact with other peers. He reported no side effects from his Invega other than reporting that he was feeling a bit more tired. He had reported some difficulties with sleep continuity disruption last night. Mental Status Exam MSE Comments: He is casually dressed white male who appeared his stated age who is sitting in a dark room. He had poor eye contact but was friendly and cooperative on inter view.. There was normal gait and there was no evidence of any abnormal involuntary motor movements tics or tremors appreciated. His speech was monotone in quality with normal rate with normal volume. There was some measure of mild psychomotor slowing. His mood was described as all right. His affect remained somewhat blunted. His thought process was linear logical and superficial. His thought content showed no evidence of active homicidal or suicidal ideation. There was continued evidence of bizarre delusions with ideas of thought broadcasting. He did not appear to be responding to internal stimuli. His recent and remote memory appeared grossly intact. His insight was poor. His judgment is poor. His impulse control appeared to be improving. Vitals/I&O/Wt Last Vital Signs Temp 98.1 F 12/14/22 06:00 Pulse 83 12/14/22 06:00 Resp 15 12/14/22 06:00 BP 127/87 12/14/22 06:00 Pulse Ox 97 12/14/22 06:00 O2 Del Method Room Air 12/12/22 22:00 Data NPU 12/10/22 16:14 12/10/22 16:14 A&P Assessment and plan (1) Psychotic disorder: (2) Paranoia (psychosis): (3) Generalized anxiety disorder: (4) Major depressive disorder, recurrent: Qualifiers: Active/Remission status: currently active Major depression episode severity: moderate Qualified Code(s): F33.1 - Major depressive disorder, recurrent, moderate Plan 42-year-old white male with a long history of depression and generalized anxiety disorder who appears to be struggling with psychosis that may have been present and lingering for several years. He had reported a previous benefit from a low- dose of an antipsychotic and was agreeable to the use of an antipsychotic to target his psychosis. 1.? ? Engage? patient in individual ,milieu, and group therapy ?2. ? Continue Invega 3mg daily with increase to 3mg bid. continue Lexapro 20mg as prescribed. ?3. ? TO-15 minute checks on the unit. ?4.? Recommend sober living treatment at the highest level of care to which the patient is willing to commit. Involuntary Hold Information 96 Hour Hold: 96 Hour Involuntary Admission: Yes 96 Hour Hold Ending Date: 12/16/22 96 Hour Hold Ending Time: 15:39 Attestations NPU Medical Necessity Statement*: Inpatient hospitalization is medically necessary and deemed to be the clinically appropriate intervention at this time. We will monitor initiate medications while making changes as indicated. His likely length of stay is 5 to 7 days. Coding Level of Care Code Acute Code for [facility] Diagnoses Psychotic disorder F29 Paranoia (psychosis) F22 Generalized anxiety disorder F41.1 Major depressive disorder, recurrent F33.1 Active/Remission status: currently active Major depression episode severity: moderate
[2022-12-14 14:00] VITALS: BP 136/78; PULSE 88; RESP 16; TEMP 36.8; O2SAT 97
[2022-12-14] MEDS: escitalopram 10 mg Tablet 20 MG PO (17:33)
[2022-12-14 20:11] VITALS: BP 137/88; PULSE 90; RESP 18; TEMP 36.6; O2SAT 97
[2022-12-15 06:00] VITALS: BP 118/87; PULSE 84; RESP 18; TEMP 36.4; O2SAT 98
[2022-12-15] MEDS: ibuprofen 600 mg Tablet PO ×2 (08:59→20:11)
[2022-12-15] MEDS: paliperidone ER 3 mg Tablet PO ×2 (09:00→17:43)
[2022-12-15] MEDS: diclofenac 1% Topical Gel 100 gm 4 APPLIC TOPICAL ×4 (09:01→20:09)
--- NOTE | 2022-12-15 11:57 | P.NPUPN_ITS ---
Subjective NPU Subjective: This is a 42-year-old white male with psychotic disorder and otherwise specified admitted with increased bizarre behavior and bizarre delusions regarding the [place] invading his privacy. The patient had reported feeling much better as he stated that his thoughts about his house being bugged by the [place] were less intense. He reported having less frequent thoughts about his thoughts being broadcasted. He was able to attend groups and appeared more social. He had complained about feeling more tired and reported that he was having pain with his gout in his left foot. He reported no feelings of hopelessness. He denied any suicidal ideation at this time. Mental Status Exam MSE Comments: He is casually dressed white male who appeared his stated age who is sitting comfortably in his room. He had improved eye contact and was friendly and cooperative on interview.. There was normal gait and there was no evidence of any abnormal involuntary motor movements tics or tremors appreciated. His speech was monotone in quality with normal rate with normal volume. There was mild psychomotor retardation. His mood was described as better. His affect was slightly more euthymic and less flat. His thought process was linear logical and superficial. His thought content showed no evidence of active homicidal or suicidal ideation. There was continued evidence of bizarre delusions with ideas of thought broadcasting. He did not appear to be responding to internal stimuli. His recent and remote memory appeared grossly intact. His insight was poor. His judgment is fair. His impulse control appeared to be improving. Tender left toe, painful to touch appeared hot. Vitals/I&O/Wt Last Vital Signs Temp 97.5 F L 12/15/22 06:00 Pulse 84 12/15/22 06:00 Resp 18 12/15/22 06:00 BP 118/87 12/15/22 06:00 Pulse Ox 98 12/15/22 06:00 O2 Del Method Room Air 12/15/22 06:00 Weight last 48 hrs Weight 102.875 kg Data NPU 12/10/22 16:14 12/10/22 16:14 A&P Assessment and plan (1) Psychotic disorder: (2) Paranoia (psychosis): (3) Generalized anxiety disorder: (4) Major depressive disorder, recurrent: Qualifiers: Active/Remission status: currently active Major depression episode severity: moderate Qualified Code(s): F33.1 - Major depressive disorder, recurrent, moderate Plan 42-year-old white male with a long history of depression and generalized anxiety disorder who appears to be struggling with psychosis that may have been present and lingering for several years. He had reported a previous benefit from a low- dose of an antipsychotic and was agreeable to the use of an antipsychotic to target his psychosis. 1.? ? Engage? patient in individual ,milieu, and group therapy ?2. ? Continue Invega 3mg daily with increase to 3mg bid. continue Lexapro 20mg as prescribed. ?3. ? TO-15 minute checks on the unit. ?4.? Recommend sober living treatment at the highest level of care to which the patient is willing to commit. 5. Consult with medicine regarding acute gout in left foot. Involuntary Hold Information 96 Hour Hold: 96 Hour Involuntary Admission: Yes 96 Hour Hold Ending Date: 12/16/22 96 Hour Hold Ending Time: 15:39 Attestations NPU Medical Necessity Statement*: Inpatient hospitalization is medically necessary and deemed to be the clinically appropriate intervention at this time. We will monitor initiate medications while making changes as indicated. His likely length of stay is 3-5 days. Coding Level of Care Code Acute Code for [facility] Diagnoses Psychotic disorder F29 Paranoia (psychosis) F22 Generalized anxiety disorder F41.1 Major depressive disorder, recurrent F33.1 Active/Remission status: currently active Major depression episode severity: moderate
[2022-12-15 14:00] VITALS: BP 141/81; PULSE 96; RESP 16; TEMP 37; O2SAT 97
[2022-12-15] MEDS: escitalopram 10 mg Tablet 20 MG PO (17:43)
[2022-12-15 20:53] VITALS: BP 129/78; PULSE 88; RESP 18; TEMP 36.6; O2SAT 96
[2022-12-16 06:00] VITALS: BP 131/85; PULSE 82; RESP 16; TEMP 36.2; O2SAT 96
[2022-12-16] MEDS: paliperidone ER 3 mg Tablet PO (08:22)
[2022-12-16 11:20] VITALS: BP 131/85; PULSE 82; RESP 16; TEMP 36.2; O2SAT 96
[2022-12-16] MEDS: ibuprofen 600 mg Tablet PO (12:13)
[2022-12-16 13:05] VITALS: BP 141/92; PULSE 95; RESP 17; TEMP 36.6; O2SAT 97
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
[2022-12-16 14:42] VITALS: BP 141/92; PULSE 95; RESP 17; TEMP 36.6; O2SAT 97
== END 2022-12-16 15:31 | disposition home or self-care (01) | DRG 885 ==
LOC: ER 16:47 → NP 17:56
PROVIDERS: Admitting Provider Psychiatry & Neurology Psychiatry; Emergency Provider Physician Assistant; PCP Family Medicine; Visit Provider Psychiatry & Neurology Psychiatry
DX: F23 Brief psychotic disorder (principal); F33.1 Major depressive disorder, recurrent, moderate; F41.1 Generalized anxiety disorder; F22 Delusional disorders; F10.90 Alcohol use, unspecified, uncomplicated
CPT/HCPCS: 36415; 80053; 80306; 80307; 85025; 97150; 97165; 99238; 99285

== ENCOUNTER 2022-12-21 03:37 | Emergency (ER) | payer BC, MEDICAID, SELFPAY ==
[2022-12-21 03:46] VITALS: BP 158/114; PULSE 85; RESP 16; TEMP 37; O2SAT 97; BMI 31.4
[2022-12-21 03:54] VITALS: BP 158/114; RESP 16; O2SAT 96
--- NOTE | 2022-12-21 03:54 | XRR_ITS ---
PROCEDURE INFORMATION: Exam: XR Left Toe(s) Exam date and time: 12/21/2022 4:07 AM Age: 42 years old Clinical indication: Pain; Toes; Left; Additional info: Great toe pain TECHNIQUE: Imaging protocol: Radiologic exam of the left toes. Views: Minimum 2 views. COMPARISON: No relevant prior studies available. FINDINGS: Bones/joints: There is no acute fracture or dislocation. If symptoms persist, follow-up imaging in several days may be useful to exclude an occult or subtle fracture. No other significant acute bone or joint abnormality. Mild arthritic changes involving the 1st metatarsophalangeal joint. No visible bony erosions. Soft tissues: Suspect some soft tissue swelling adjacent to the 1st metatarsophalangeal joint. No visible soft tissue gas or calcification. XR/XR toe LT min 2V [id number] IMPRESSION: 1. No acute fracture or dislocation. 2. Other findings discussed above.
--- NOTE | 2022-12-21 04:11 | ED_ITS ---
HPI - Extremity Problem General: Chief complaint: Extremity Injury, Lower Stated complaint: Left Toe Pain Time Seen by Provider: 12/21/22 03:53 Source: patient History of Present Illness: 42-year-old male here complaining of left great toe pain. He states he has been treated 4 times with steroids for gout, without much improvement. He complains of pain to the left great toe, swelling, some redness. Pain was weightbearing. No fever. No trauma. He has not had x-rays or lab work. MD Complaint: joint swelling and joint pain Onset (ago): day(s) Pain Consistency: constant Location: left and toe Quality: stabbing and aching Radiation: none Relieving factors: nothing Exacerbating factors: weight bearing Associated symptoms: Deny chest pain, fever(s), rash or short of breath Context: history of gout (Although no formal diagnosis) Review of Systems Const: Denies: fever(s) Eyes: Denies: change in vision ENMT: Denies: throat pain Card: Denies: chest pain Resp: Denies: dyspnea GI: Denies: vomiting Skin/Breast: Denies: rash PFSH ED PFSH: Medical History Alcohol use Involuntary commitment Major depressive episode Paranoia Psychiatric care Social History Smoking and tobacco status: never smoked Physical Exam Const: COMMON NORMALS: no acute distress GENERAL APPEARANCE: cooperative; not ill appearing and not frail appearing HENMT: COMMON NORMALS: normocephalic, atraumatic and Normal external nose present HEAD & SCALP: normocephalic and atraumatic FACE & SINUS: normal facial exam and face symmetric NOSE: Normal external nose present Eye: COMMON NORMALS: Equal, round and reactive pupils present and EOMs intact bilaterally PUPIL: Yes Equal, round and reactive pupils present Neck/C-Spine: GENERAL: Yes trachea midline Chest: CHEST: Yes Symmetrical chest wall rise Resp: COMMON NORMALS: normal respiratory effort, No retractions, No use of accessory muscles and clear to auscultation bilaterally AUSCULTATION: clear to auscultation bilaterally Cardio: COMMON NORMALS: regular rate and regular rhythm RATE: regular rate RHYTHM: regular rhythm GI: COMMON NORMALS: Normal to inspection, nondistended, normoactive bowel sounds present Extremity: COMMON NORMALS: no pedal edema NARRATIVE EXTREMITY EXAM: Left great toe MTP tenderness, swelling, mild redness, pain with movement. No deformity. Neuro: TIAN COMA SCALE: document GCS findings [place] coma scale eye openi ng: Spontaneous [place] coma scale verbal response: Orientated Tian coma scale motor response: Obey commands [place] coma scale total score: 15 SENSORY EXAM: Yes extremities (intact) Psych: COMMON NORMALS: speech normal SPEECH: Yes normal speech Skin: COMMON NORMALS: no rashes or lesions noted GENERAL SKIN EXAM: no rashes or lesions noted Course Vital Signs: Vital signs: Vital Signs Temperature 98.6 F 12/21/22 03:46 Pulse Rate 85 12/21/22 03:46 Respiratory Rate 16 12/21/22 03:54 Blood Pressure 158/114 12/21/22 03:54 Pulse Oximetry 96 12/21/22 03:54 Oxygen Delivery Me thod Room Air 12/21/22 03:46 MDM - Extremity (Nontraumatic) Medical Decision Making X-ray reveals soft tissue swelling over the MTP. There is mild spurring lateral ly of the MTP joint suggestive of gout. No deformity. No fracture. If he has not responded to steroids, will place him on colchicine. Outpatient follow-up. Discharge Plan Discharge Patient Disposition: Home Clinical Impression: Acute gout involving toe of left foot Condition: Stable Prescriptions: New colchicine 0.6 mg capsule 0.6 mg PO BID Qty: 20 0RF No Action diclofenac sodium [Arthritis Pain (diclofenac)] 1 % gel 4 g topical QID Qty: 100 0RF Rx Instructions: apply to left great toe methylprednisolone 4 mg tablet See Rx Instructions PO DAILY Rx Instructions: Day 1:-2 tablets before breakfast; 1 tablet after lunch and supper; and 2 tablets at bedtime Day 2: 1 tablet before breakfast; 1 tablet; after lunch and supper; and 2 tablets at bedtime Day 3: 1 tablet before breakfast; 1 tablet; after lunch and supper and at bedtime Day 4:1 tablet before breakfast; after lunch; and at bedtime Day 5: 1 tabletbefore breakfast and at bedtime Day 6: Take 1 tablet before breakfast escitalopram oxalate 20 mg tablet 20 mg PO QPM Rx Instructions: Take one tablet by mouth every evening paliperidone 6 mg tablet extended release 24 hr 6 mg PO QPM 30 Days Qty: 30 1RF Discharge Orders: Discharge ED (Routine); Ordered 12/21/22 Ordered By: Rayshawn Hay Referrals: Rishi Howell MD [Primary Care Provider] - 4-7 days Patient Instructions: Gout (ED) Activity Restrictions/Additional Instructions: Take the medication you were prescribed 4 times daily for the first 2 days, 3 times daily for the next 2 days, then twice daily. Continue medication until gone even if pain resolves prior to this. Follow-up with your doctor next week, once your flare is over, you may need further medical treatment to prevent recurrence. Return for fever, worsening pain despite treatment, other concerning symptoms. 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
[2022-12-21] MEDS: oxyCODONE-APAP 5-325 mg Tablet 2 TAB PO (04:25)
[2022-12-21] MEDS: colchicine 0.6 mg Tablet PO (04:25)
[2022-12-21 04:27] VITALS: BP 158/114; PULSE 85; RESP 16; TEMP 37; O2SAT 96
== END 2022-12-21 04:29 | disposition home or self-care (01) ==
PROVIDERS: Emergency Provider Emergency Medicine; PCP Family Medicine
DX: M10.9 Gout, unspecified (principal)
CPT/HCPCS: 73660; 99283